=== PATIENT | male | born 1975 | race Caucasian/White ===

== ENCOUNTER 2021-10-04 09:24 | Emergency (ER) | payer MEDICAID ==
[~2021-10-04] VITALS: Ht 177.8 cm; Wt 97.5 kg
[2021-10-04 09:41] VITALS: BP 148/95
[2021-10-04] MEDS ORDERED: LIDOCAINE 1% HCL (LOCAL ANESTH.) INJ 20ML MDV IJ ONE (09:45)
== END 2021-10-04 10:02 | disposition home or self-care (01) ==
LOC: ER 09:24
DX: S61.214A Laceration without foreign body of right ring finger without damage to nail, initial encounter (principal); F17.210 Nicotine dependence, cigarettes, uncomplicated; W26.8XXA Contact with other sharp object(s), not elsewhere classified, initial encounter; Y93.89 Activity, other specified; Y92.89 Other specified places as the place of occurrence of the external cause; Y99.8 Other external cause status
CPT/HCPCS: 12002; 99282; J2001

== ENCOUNTER 2022-08-10 09:08 | Emergency (ER) | payer MEDICAID ==
[~2022-08-10] VITALS: Ht 177.8 cm; Wt 90.0 kg
[2022-08-10 09:16] VITALS: BP 165/119
[2022-08-10] MEDS ORDERED: FLUORESCEIN SOD OPTH TEST STRIP LEFTEYE ONE (12:00)
[2022-08-10] MEDS ORDERED: TETRACAINE HCL 0.5% OPTH(EYE) SOLN 4ML LEFTEYE ONE (12:00)
[2022-08-10] MEDS ORDERED: ERY05OO OP (12:31)
[2022-08-10] MEDS ORDERED: IBUP600T28 PO (12:31)
== END 2022-08-10 12:31 | disposition home or self-care (01) ==
LOC: ER 09:08
DX: S05.02XA Injury of conjunctiva and corneal abrasion without foreign body, left eye, initial encounter (principal); F17.210 Nicotine dependence, cigarettes, uncomplicated; Z79.1 Long term (current) use of non-steroidal anti-inflammatories (NSAID); Z79.2 Long term (current) use of antibiotics; X58.XXXA Exposure to other specified factors, initial encounter; Y93.89 Activity, other specified; Y92.89 Other specified places as the place of occurrence of the external cause; Y99.8 Other external cause status

== ENCOUNTER 2024-01-25 15:59 | Inpatient (IN) | payer MEDICAID ==
[~2024-01-25] VITALS: Ht 177.8 cm; Wt 97.3 kg
[~2024-01-25 15:59] MED LIST: ERY05OO OP; IBUP1TAB5 PO
[2024-01-25 16:20] LABS: Basophils # (auto) 0 10 ^3/uL (0-0.2); Basophils % (auto) 0.4 % (0.0-2.0); Eosinophils # (auto) 0.1 10 ^3/uL (0-0.8); Eosinophils % (auto) 1.3 % (0.0-7.0); Hematocrit 50.8 % (41.0-53.0); Hemoglobin 17.7 g/dL (13.5-17.5); Lymphocytes # (auto) 2.8 10 ^3/uL (0.4-5.4); Lymphocytes % (auto) 33.5 % (10.0-50.0); Mean Corpuscular Hemoglobin 35.9 pg (28.0-32.0); Mean Corpuscular Hgb Conc. 34.9 g/dL (32.0-36.0); Mean Corpuscular Volume 102.9 fL (80.0-100.0); Monocytes # (auto) 0.6 10 ^3/uL (0-1.3); Monocytes % (auto) 6.7 % (0.0-12.0); Neutrophils # (auto) 4.9 10 ^3/uL (1.6-8.6); Neutrophils % (auto) 58.1 % (37.0-80.0); Nucleated Red Blood Cells % 0.3 %; Platelet Count (auto) 261 10^3/uL (140-450); Red Blood Cells 4.94 10^6/uL (4.5-5.90); White Blood Cell 8.5 10^3/uL (4.4-10.8)
[2024-01-25] MEDS: cloNIDine HCL 0.1 MG TAB PO ONE (16:31)
[2024-01-25 16:38] LABS: Alanine Aminotransferase 30 U/L (7-40); Albumin 4.6 g/dL (3.2-4.8); Alkaline Phosphatase 85 U/L (46-116); Anion Gap 11 (5-15); Aspartate Aminotransferase 45 U/L (13-40); BUN/Creatinine Ratio 6.4 (10.0-20.0); Bilirubin, Total 0.9 mg/dL (0.2-1.0); Blood Urea Nitrogen 8 mg/dL (9-23); Carbon Dioxide 23 mmol/L (20-30); Chloride 105 mmol/L (98-107); Glucose 118 mg/dL (74-106); Potassium 4.2 mmol/L (3.5-5.1); Sodium 139 mmol/L (136-145); Total Protein 7.7 g/dL (5.7-8.2)
[2024-01-25 17:06] VITALS: PULSE 79; RESP 18; O2SAT 91
[2024-01-25] MEDS: SODIUM CHLORIDE 0.9% 1,000 ML IV ONE (17:45)
[2024-01-25] MEDS: NITROGLYCERIN 0.4 MG SL TAB SL ONE (17:58)
[2024-01-25] MEDS: ASPirin 325 MG TAB PO ONE (17:58)
[2024-01-25] MEDS ORDERED: DOCUSATE SOD 100 MG CAP PO PRN (18:15)
[2024-01-25] MEDS ORDERED: MORPHINE SULFATE INJ 2 MG/ml SYRG IV PRN ×2 (18:15→19:30)
[2024-01-25] MEDS ORDERED: hydrALAZINE HCL 20 MG/ML VL IV PRN (18:15)
[2024-01-25] MEDS ORDERED: ACETAMINOPHEN 325 MG TAB PO PRN (18:15)
[2024-01-25] MEDS ORDERED: ONDANSETRON HCL 4 MG/2 ML VIAL IV PRN (18:15)
[2024-01-25 19:11] LABS: INR 1.04 (0.9-1.15); Partial Thromboplastin Time 27.5 SEC (24.5-34.5); Prothrombin Time 11.2 sec (9.3-11.8)
[2024-01-25 19:30] VITALS: PULSE 59; RESP 18; O2SAT 98
[2024-01-25] MEDS ORDERED: NITROGLYCERIN 0.4 MG SL TAB SL PRN (19:30)
[2024-01-25] MEDS: HEPARIN SODIUM (PORCINE) 5000 UNITS/ML 1ML VIAL IV ONE (19:53)
[2024-01-25] MEDS: HEPARIN DRIP/D5W 100UNITS/ML 250 ML IV SCH (20:09)
[2024-01-25 22:12] LABS: Urine Bacteria None Seen /hpf (None Seen)
[2024-01-25 22:16] VITALS: BP 120/75; PULSE 52; RESP 18; TEMP 97.8; O2SAT 93
[2024-01-25 22:32] LABS: Amphetamine Screen, Urine Neg (NEGATIVE); Barbiturate Scree,Urine Neg (NEGATIVE); Benzodiazephine Screen, Urine Neg (NEGATIVE); Cannabinoid Screen, Urine Neg (NEGATIVE); Cocaine Screen, Urine Neg (NEGATIVE); Opiate Scree,Urine Neg (NEGATIVE); Phencyclidine Screen, Urine Neg (NEGATIVE)
[2024-01-25 22:37] LABS: Urine Blood Negative /uL (Negative); Urine Clarity Clear (Clear); Urine Color Light-Yellow (Yellow); Urine Mucus FEW (None Seen); Urine Protein, UAD Negative (Negative); Urine Specific Gravity 1.014 (1.001-1.035); Urine Urobilinogen Normal (Negative); Urine WBC <1 /hpf (0 - 3)
[2024-01-25] MEDS: ATORVASTATIN 20 MG TAB PO SCH (23:11)
[2024-01-25] MEDS: CARVEDILOL 12.5 MG TAB PO SCH (23:11)
[2024-01-25] MEDS: SODIUM CHLOR 0.9% PF (SALINE LOCK) 10ML VIAL/SYR IV SCH (23:11)
[2024-01-25 23:16] VITALS: BP 99/63; PULSE 59; RESP 17; TEMP 98; O2SAT 93
[2024-01-26] VITALS (13 sets, daily range): BP systolic 99–142; BP diastolic 63–87; PULSE 51–72; RESP 10–20; TEMP 97.6–98; O2SAT 90–98
[2024-01-26 02:24] LABS: Basophils # (auto) 0.1 10 ^3/uL (0-0.2); Eosinophils # (auto) 0.1 10 ^3/uL (0-0.8); Mean Corpuscular Hgb Conc. 35.5 g/dL (32.0-36.0); Monocytes # (auto) 0.5 10 ^3/uL (0-1.3); Neutrophils # (auto) 3.3 10 ^3/uL (1.6-8.6); Nucleated Red Blood Cells % 0.1 %
[2024-01-26 02:25] LABS: Basophils % (auto) 0.8 % (0.0-2.0); Hematocrit 42.4 % (41.0-53.0); Hemoglobin 15.1 g/dL (13.5-17.5); Lymphocytes # (auto) 3.1 10 ^3/uL (0.4-5.4); Lymphocytes % (auto) 43.9 % (10.0-50.0); Mean Corpuscular Hemoglobin 36.6 pg (28.0-32.0); Mean Corpuscular Volume 102.9 fL (80.0-100.0); Monocytes % (auto) 6.8 % (0.0-12.0); Neutrophils % (auto) 46.5 % (37.0-80.0); Platelet Count (auto) 210 10^3/uL (140-450); Red Blood Cells 4.11 10^6/uL (4.5-5.90); Red Cell Distribution Width 13.9 % (11.8-14.3)
[2024-01-26 02:31] LABS: Alanine Aminotransferase 18 U/L (7-40); Albumin 3.7 g/dL (3.2-4.8); Alkaline Phosphatase 64 U/L (46-116); Anion Gap 7 (5-15); Aspartate Aminotransferase 27 U/L (13-40); BUN/Creatinine Ratio 6.4 (10.0-20.0); Bilirubin, Total 0.7 mg/dL (0.2-1.0); Blood Urea Nitrogen 8 mg/dL (9-23); Carbon Dioxide 24 mmol/L (20-30); Chloride 107 mmol/L (98-107); Glucose 105 mg/dL (74-106); Potassium 4.1 mmol/L (3.5-5.1); Sodium 138 mmol/L (136-145); Total Protein 6.2 g/dL (5.7-8.2)
[2024-01-26 02:54] LABS: INR 1.37 (0.9-1.15); Partial Thromboplastin Time 64.3 SEC (24.5-34.5); Prothrombin Time 14.5 sec (9.3-11.8)
[2024-01-26] MEDS: amLODIPine BESYLATE 5 MG TAB PO SCH (09:12)
[2024-01-26] MEDS: FAMOTIDINE (10MG/ML) 2ML VL IV SCH (09:19)
[2024-01-26 10:24] LABS: INR 1.02 (0.9-1.15); Partial Thromboplastin Time 40.4 SEC (24.5-34.5)
[2024-01-26] MEDS: HEPARIN DRIP/D5W 100UNITS/ML 250 ML IV SCH (10:45)
[2024-01-26] MEDS: PANTOPRAZOLE 40 MG TAB PO ONE (10:55)
[2024-01-26] MEDS: FOLIC ACID 1 MG, MAGNESIUM SULF SDV 50% 8 MEQ, MULTIPLE VITAMIN 10 ML, THIAMINE INJ 100... INJ ONE (11:00)
[2024-01-26] MEDS: IODIXANOL 320MG/ML 100ML BTL IV ONE ×2 (12:37→13:57)
[2024-01-26] MEDS: HEPARIN IN NS 1000Units/500mL 1,500 ML ONE (12:37)
[2024-01-26] MEDS: ANGIOMAX 250 MG VIAL IV ONE ×2 (12:38→14:02)
[2024-01-26] MEDS: fentaNYL CITRATE 100 MCG/2 ML VL ONE ×2 (12:38→13:47)
[2024-01-26] MEDS: VERAPAMIL 2.5MG/ML INJ 2ML VIAL IV ONE (12:38)
[2024-01-26] MEDS: HEPARIN SODIUM (PORCINE) 5000 UNITS/ML 1ML VIAL ONE (12:38)
[2024-01-26] MEDS: MIDAZOLAM HCL 2MG/2ML 2ml VIAL (1mg/ml) ONE (12:39)
[2024-01-26] MEDS: LIDOCAINE 2%HCL (LOCAL ANESTH.) INJ 20ML MDV ONE (12:39)
[2024-01-26] MEDS: SODIUM CHL 0.9% 50 ML ONE (12:39)
[2024-01-26] MEDS: CLOPIDOGREL BISULFATE 75 MG TAB ONE ×2 (14:13→14:15)
[2024-01-26 17:39] LABS: INR 1.19 (0.9-1.15); Partial Thromboplastin Time 47.6 SEC (24.5-34.5); Prothrombin Time 12.5 sec (9.3-11.8)
[2024-01-26] MEDS: HYDROcodone-ACET 5/325MG TAB PO PRN (19:50)
[2024-01-27 01:00] VITALS: BP 112/73; PULSE 61; RESP 17; TEMP 98; O2SAT 92
[2024-01-27 05:00] VITALS: BP 116/79; PULSE 66; RESP 18; TEMP 97.7; O2SAT 93
[2024-01-27] MEDS: PANTOPRAZOLE 40 MG TAB PO SCH (05:59)
[2024-01-27 07:18] LABS: Anion Gap 3 (5-15); Carbon Dioxide 28 mmol/L (20-30); Chloride 107 mmol/L (98-107); Potassium 3.8 mmol/L (3.5-5.1); Sodium 138 mmol/L (136-145)
[2024-01-27 07:19] LABS: Calcium 9.6 mg/dL (8.7-10.4)
[2024-01-27 07:24] LABS: BUN/Creatinine Ratio 5.1 (10.0-20.0); Blood Urea Nitrogen 6 mg/dL (9-23); Glucose 108 mg/dL (74-106)
[2024-01-27 07:57] LABS: Basophils # (auto) 0 10 ^3/uL (0-0.2); Basophils % (auto) 0.6 % (0.0-2.0); Eosinophils # (auto) 0.2 10 ^3/uL (0-0.8); Eosinophils % (auto) 2.2 % (0.0-7.0); Hematocrit 45.2 % (41.0-53.0); Hemoglobin 15.8 g/dL (13.5-17.5); Lymphocytes % (auto) 29.6 % (10.0-50.0); Mean Corpuscular Hemoglobin 36.1 pg (28.0-32.0); Mean Corpuscular Volume 103.1 fL (80.0-100.0); Monocytes # (auto) 0.4 10 ^3/uL (0-1.3); Monocytes % (auto) 6.4 % (0.0-12.0); Neutrophils # (auto) 4.2 10 ^3/uL (1.6-8.6); Neutrophils % (auto) 61.2 % (37.0-80.0); Nucleated Red Blood Cells % 0.2 %; Platelet Count (auto) 209 10^3/uL (140-450); Red Blood Cells 4.39 10^6/uL (4.5-5.90); Red Cell Distribution Width 14.1 % (11.8-14.3); White Blood Cell 6.9 10^3/uL (4.4-10.8)
[2024-01-27 08:00] VITALS: PULSE 62; PULSE 63; RESP 19; O2SAT 93
[2024-01-27 08:05] VITALS: BP 146/96; PULSE 63; RESP 19; TEMP 97.9; O2SAT 93
[2024-01-27] MEDS: ASPirin 81 mg TAB PO SCH (09:35)
[2024-01-27] MEDS: CLOPIDOGREL BISULFATE 75 MG TAB PO SCH (09:35)
[2024-01-27 12:10] VITALS: BP 143/94; PULSE 64; RESP 19; TEMP 98; O2SAT 95
[2024-01-27] MEDS ORDERED: ASPI-325 PO (12:26)
[2024-01-27] MEDS ORDERED: AML5T PO (12:26)
[2024-01-27] MEDS ORDERED: ATOR20TA50 PO (12:26)
[2024-01-27] MEDS ORDERED: CLOP75TA70 PO (12:26)
[2024-01-27] MEDS ORDERED: CARV-216 PO (12:26)
[2024-01-27] MEDS ORDERED: LISI20TA56 PO (12:28)
[2024-01-27 13:50] VITALS: BP 125/57; PULSE 74; RESP 18; TEMP 98.1; O2SAT 97
[2024-01-27] MEDS ORDERED: ATORVASTATIN 20 MG TAB PO SCH (22:00)
== END 2024-01-27 14:20 | disposition home or self-care (01) | DRG 174 ==
LOC: ER 15:59 → TELE-WESTW 19:26 → TELE 19:26 → TELE-WESTW 22:15
PROVIDERS: ADMIT Internal Medicine; ATTEND Internal Medicine
PROC: 027135Z Dilation of Coronary Artery, Two Arteries with Two Drug-eluting Intraluminal Devices, Percutaneous Approach (ICD-10-PCS; principal; 2024-01-26)
PROC: 4A023N7 Measurement of Cardiac Sampling and Pressure, Left Heart, Percutaneous Approach (ICD-10-PCS; 2024-01-26)
PROC: B211YZZ Fluoroscopy of Multiple Coronary Arteries using Other Contrast (ICD-10-PCS; 2024-01-26)
DX: I21.4 Non-ST elevation (NSTEMI) myocardial infarction (principal); I50.31 Acute diastolic (congestive) heart failure; I16.0 Hypertensive urgency; I11.0 Hypertensive heart disease with heart failure; I25.10 Atherosclerotic heart disease of native coronary artery without angina pectoris; F17.210 Nicotine dependence, cigarettes, uncomplicated; F10.10 Alcohol abuse, uncomplicated; Z79.899 Other long term (current) drug therapy; Y90.9 Presence of alcohol in blood, level not specified
CPT/HCPCS: 36415; 71045; 80048; 80053; 80307; 81001; 83880; 84484; 85025; 85379; 85610; 85730; 92928; 92941; 93005; 93306; 93458; 99152; 99291; C1874; G0378; J2250; J3490; Q9967